=== PATIENT | female | born 1980 ===

== ENCOUNTER 2024-04-06 15:17 | Emergency (ER) | payer OTHER ==
[~2024-04-06] VITALS: Ht 167.6 cm; Wt 59.0 kg
[2024-04-06 15:50] LABS: BASOPHILS # (AUTO) 0.1 K/UL (0.0-0.2); BASOPHILS % (AUTO) 1.8 % (0.0-2.0); EOSINOPHILS # (AUTO) 0.1 K/uL (0.0-0.7); EOSINOPHILS % (AUTO) 2.2 % (0.0-7.0); HEMATOCRIT 37.4 % (31.2-41.9); HEMOGLOBIN 12.4 g/dL (10.9-14.3); LYMPHOCYTES % (AUTO) 14.9 % (20.5-51.5); MEAN CORPUSCULAR HEMOGLOBIN 29.3 uug (24.7-32.8); MEAN CORPUSCULAR HGB CONC 33 g/dL (32.3-35.6); MEAN CORPUSCULAR VOLUME 88.2 fL (75.5-95.3); MONOCYTES # (AUTO) 0.5 K/uL (0.1-1.30); MONOCYTES % (AUTO) 7.2 % (0.0-11.0); NEUTROPHILS # (AUTO) 4.7 K/uL (1.8-8.9); NEUTROPHILS % (AUTO) 73.9 % (38.5-71.5); PLATELET COUNT (AUTO) 243 K/uL (179-408); RED BLOOD CELL COUNT(AUTO) 4.25 MIL/uL (3.63-4.92); RED CELL DISTRIBUTION WIDTH 14.2 % (12.3-17.7); WHITE BLOOD COUNT (AUTO) 6.4 K/uL (3.8-11.8)
[2024-04-06 15:56] LABS: CALCIUM 9.2 mg/dL (8.5-10.1); CARBON DIOXIDE 22 mmol/L (21-32); CHLORIDE 104 mmol/L (98-107); CREATININE 0.8 mg/dL (0.6-1.3); GLUCOSE 83 mg/dL (74-106); POTASSIUM 3.7 mmol/L (3.5-5.1); SODIUM SERUM 141 mmol/L (136-145); UREA NITROGEN, BLOOD 13 mg/dL (7-18)
[2024-04-06 16:01] LABS: DIFFERENTIAL COMMENT 1
[2024-04-06 16:02] LABS: ALANINE AMINOTRANSFERASE 56 U/L (14-59); ALBUMIN 4.5 g/dL (3.4-5.0); ALKALINE PHOSPHATASE 49 U/L (50-136); ASPARTATE AMINOTRANSFERASE 31 U/L (15-37); BILIRUBIN,DIRECT 0.1 mg/dL (0.0-0.2); BILIRUBIN,TOTAL 0.4 mg/dL (0.2-1.0); ETHANOL < 3 MG/DL (0-10); TOTAL PROTEIN, SERUM 7.8 g/dL (6.4-8.2)
[2024-04-06 16:06] LABS: ACETAMINOPHEN < 10.0 ug/mL (10-30)
[2024-04-06] MEDS ORDERED: LAMICTAL (16:56)
[2024-04-06] MEDS ORDERED: QUET25TA3 (16:56)
[2024-04-06] MEDS: DEXTROSE 5% IV ONE (17:45)
[2024-04-06] MEDS: ACETYLCYSTEINE IV ONE (17:45)
[2024-04-06] MEDS ORDERED: KETOROLAC TROMETHAMINE 15 MG INJ ONE (17:46)
[2024-04-06] MEDS: KETOROLAC TROMETHAMINE 15 MG INJ IVP ONE (17:49)
[2024-04-06 17:53] LABS: *BILIRUBIN,URIN NEGATIVE (NEGATIVE); *BLOOD, URINE NEGATIVE (NEGATIVE); *CLARITY,URINE CLEAR (CLEAR); *COLOR,URINE YELLOW (YELLOW); *KETONES,URINE 4+ (NEGATIVE); *PROTEIN,URINE NEGATIVE (NEGATIVE); *UROBILINOGEN,URINE 0.2 E.U./dl (NORMAL); LEUKOCYTE ESTERASE ,URINE NEGATIVE (NEGATIVE); NITRITE, URINE NEGATIVE (NEGATIVE); UGLUCOSE NEGATIVE (NEGATIVE)
[2024-04-06 18:02] LABS: *AMPHETAMINE, URINE NEGATIVE (NEGATIVE); *BARBITURATE, URINE NEGATIVE (NEGATIVE); *BENZODIAZEPINE, URINE NEGATIVE (NEGATIVE); *CANNABINOID, URINE NEGATIVE (NEGATIVE); *COCCAINE, URINE NEGATIVE (NEGATIVE); *OPIATE, URINE NEGATIVE (NEGATIVE); *PHENCYCLIDINE SCREEN,URINE NEGATIVE (NEGATIVE)
[2024-04-06 18:13] LABS: FENTANYL, URINE NEGATIVE (NEGATIVE)
[2024-04-06] MEDS: ACETYLCYSTEINE IV SCH (18:50)
[2024-04-06] MEDS: D5W IV SCH (18:50)
[2024-04-06 19:03] LABS: BACTERIA,URINE NONE SEEN /HPF (NONE SEEN); SQUAMOUS EPITHELIAL CELL,UR NONE SEEN /HPF (NONE SEEN); WBC,URINE 0-3 /HPF (0-3)
[2024-04-07] MEDS ORDERED: diphenhydrAMINE 50 MG CAPSULE ONE (01:06)
[2024-04-07] MEDS ORDERED: QUETIAPINE FUMARATE 25 MG TABLET ONE (01:07)
[2024-04-07] MEDS ORDERED: CLONIDINE HCL 0.2 MG TABLET ONE (01:07)
[2024-04-07 01:20] VITALS: BP 125/64
[2024-04-07] MEDS: CLONIDINE HCL 0.2 MG TABLET PO ONE (01:20)
[2024-04-07] MEDS: diphenhydrAMINE 50 MG CAPSULE PO ONE (01:20)
[2024-04-07] MEDS: QUETIAPINE FUMARATE 25 MG TABLET PO ONE (01:20)
[2024-04-07 03:17] VITALS: O2SAT 99
[2024-04-07] MEDS ORDERED: LAMOTRIGINE 100 MG TABLET PO ONE (09:00)
== END 2024-04-07 03:35 | disposition short-term general hospital (02) ==
LOC: ER 15:20
DX: T39.1X2A Poisoning by 4-Aminophenol derivatives, intentional self-harm, initial encounter (principal); R10.2 Pelvic and perineal pain; Z98.890 Other specified postprocedural states; Z20.822 Contact with and (suspected) exposure to COVID-19; Y92.89 Other specified places as the place of occurrence of the external cause
CPT/HCPCS: 36415; 85025; A4606; A4663; G0480; J0132; J1885; J7050; J7070; Q0163